=== PATIENT | male | born 1965 | race Hispanic/Latino ===

== ENCOUNTER 2018-10-19 13:40 | Emergency (ER) | payer OTHER ==
[~2018-10-19] VITALS: Ht 165.1 cm; Wt 93.0 kg
[~2018-10-19 13:40] MED LIST: CIPRO500 MG PO; NORCO 7.5-3251 EACH PO
[2018-10-19 14:16] LABS: BASOPHILS % 0.4 % (0.0-1.0); EOSINOPHILS # (AUTO) 0.1 (0.0-0.4); EOSINOPHILS % 1.6 % (0.0-6.0); HEMATOCRIT 39.3 % (38.2-49.6); HEMOGLOBIN 13.3 g/dL (14.0-18.0); LYMPHOCYTES # (AUTO) 2.1 (1.0-3.2); LYMPHOCYTES % 27.8 % (18.0-39.1); MEAN CORPUSCULAR HEMOGLOBIN 28.6 pg (28-32); MEAN CORPUSCULAR HGB CONC 33.8 g/dL (31-35); MEAN CORPUSCULAR VOLUME 84.5 fL (81-99); MONOCYTES # (AUTO) 0.6 (0.2-0.8); MONOCYTES % 8.4 % (4.4-11.3); NEUTROPHILS # (AUTO) 4.6 (2.1-6.9); NEUTROPHILS % 60.7 % (38.7-80.0); PLATELET COUNT 268 x10e3/uL (140-360); RED BLOOD COUNT 4.65 x10e6/uL (4.3-5.7); RED CELL DISTRIBUTION WIDTH 13.2 % (11.7-14.4)
[2018-10-19 14:30] LABS: ANION GAP 14.1 mmol/L (8-16); BLOOD UREA NITROGEN 11 mg/dL (7-26); BUN/CREATININE RATIO 12 (6-25); CALCIUM 9.8 mg/dL (8.4-10.2); CARBON DIOXIDE 21 mmol/L (22-29); CHLORIDE 104 mmol/L (98-107); CREATININE, SERUM 0.94 mg/dL (0.72-1.25); EST GLOMERULAR FILTRATION RATE > 60 ML/MIN (60-); GLUCOSE 97 mg/dL (74-118); MAGNESIUM 2.3 MG/DL (1.3-2.1); POTASSIUM 4.1 mmol/L (3.5-5.1); SODIUM 135 mmol/L (136-145)
[2018-10-19 14:52] LABS: BILIRUBIN,URINE NEGATIVE (NEGATIVE); CLARITY,URINE CLEAR (CLEAR); COLOR,URINE YELLOW (YELLOW); KETONES,URINE NEGATIVE (NEGATIVE); LEUKOCYTE ESTERASE ,URINE NEGATIVE (NEGATIVE); NITRITE,URINE NEGATIVE (NEGATIVE); PROTEIN,URINE DIPSTICK NEGATIVE (NEGATIVE); URINE UROBILINOGEN 0.2 mg/dL (0.2 - 1)
[2018-10-19 14:53] LABS: BACTERIA,URINE FEW /HPF; MUCUS,URINE FEW (RARE)
--- NOTE | 2018-10-19 16:29 | Diagnostic Imaging Report ---
EXAM: CT ABDOMEN AND PELVIS DATE: 10/19/2018 Time stamp on Exam: 2:50 PM INDICATION: Left flank and testicular pain COMPARISON: None TECHNIQUE: The abdomen and pelvis were scanned using a multidetector helical scanner. Coronal and sagittal reformations were obtained. Routine protocol performed. Technique modulation and modification was accomplished to maintain the lowest effective dose to this patient. IV Contrast: None Oral Contrast: None Radiation Dose: Total DLP 749.37 mGy*cm Estimated effective dose: DLP x 0.015 x size factor FINDINGS: LOWER THORAX: No consolidations LIVER: No masses with diffuse fatty infiltration. BILIARY: The gallbladder is unremarkable. No ductal dilatation. SPLEEN: No masses PANCREAS: No masses ADRENALS: No nodules KIDNEYS: No hydronephrosis or hydroureter. Tiny calcified interpolar bilateral renal stones. GI TRACT: No distention, wall thickening or evidence of obstruction. Scattered diverticula within the sigmoid colon. VESSELS: Minimal atherosclerotic calcification. PERITONEUM/RETROPERITONEUM: No free air or fluid LYMPH NODES: No lymphadenopathy REPRODUCTIVE ORGANS: Calcification within the prostate. BLADDER: Unremarkable SOFT TISSUES: Unremarkable BONES: No suspicious bone lesions. Disc space narrowing at L5-S1. Scattered mild spurring of the spine. IMPRESSION: 1. Tiny bilateral nonobstructing interpolar renal stones. 2. No hydronephrosis or dilated ureters. 3. Diffuse fatty infiltration of the liver. Signed by: Dr. Guido Noyola DO on 10/19/2018 4:25 PM
[2018-10-19] MEDS ORDERED: KETOROLAC TROMETHAMINE 30 MG/ML VIAL IV NR (17:45)
== END 2018-10-19 18:32 | disposition home or self-care (01) ==
LOC: ER 13:40
DX: R10.9 Unspecified abdominal pain (principal)
CPT/HCPCS: 36415; 74176; 80048; 81001; 83735; 85025; 87086; 99284; J1885